=== PATIENT | female | born 1995 | race Caucasian/White ===

== ENCOUNTER 2018-04-21 04:37 | Emergency (ER) | payer MEDICAID ==
[~2018-04-21] VITALS: Ht 165.1 cm; Wt 59.0 kg
[2018-04-21] MEDS ORDERED: SODIUM CHLORIDE 0.9% 1,000 ML IV ONE ×2 (06:38→09:31)
[2018-04-21 07:04] LABS: CLARITY URINE CLEAR (CLEAR); COLOR URINE YELLOW (YELLOW); KETONES URINE NEGATIVE (NEGATIVE); NITRITE URINE NEGATIVE (NEGATIVE); OCCULT BLOOD URINE NEGATIVE (NEGATIVE); PH URINE 6.5 (4.5-8.0); PROTEIN URINE NEGATIVE (NEGATIVE); SPECIFIC GRAVITY URINE 1.016 (1.005-1.030); UROBILINOGEN URINE 0.2 E.U./dL (0.2-1.0)
[2018-04-21 07:05] LABS: LEUKOCYTE ESTERASE URINE NEGATIVE (NEGATIVE)
[2018-04-21 07:19] LABS: *BARBITURATES SCREEN URINE NEGATIVE (NEGATIVE); *BENZODIAZEPINES SCREEN URINE NEGATIVE (NEGATIVE); *COCAINE SCREEN URINE NEGATIVE (NEGATIVE)
[2018-04-21 07:20] LABS: METHADONE URINE SCREEN NEGATIVE (NEGATIVE); OPIATES URINE SCREEN NEGATIVE (NEGATIVE); PHENCYCLIDINE URINE SCREEN NEGATIVE (NEGATIVE)
[2018-04-21 07:51] LABS: *AMPHETAMINES SCREEN URINE PRESUMTIVE POSITIVE (NEGATIVE); CANNABINOID URINE SCREEN PRESUMTIVE POSITIVE (NEGATIVE)
[2018-04-21 08:26] LABS: CHLORIDE 107 mEq/L (98-107)
[2018-04-21 08:29] LABS: BASOPHILS % 0.2 % (0.0-2.0); EOSINOPHILS % 0.1 % (0.0-5.0); ETHANOL BLOOD < 10 mg/dL; HEMATOCRIT. 42.5 % (36.0-48.0); HEMOGLOBIN. 14.6 g/dL (12.0-16.0); LYMPHOCYTES % 9.2 % (20.0-50.0); MEAN CORPUSCULAR HEMOGLOBIN 29.8 pg (28.0-32.0); MEAN CORPUSCULAR VOLUME 86.8 fL (81.0-99.0); MEAN PLATELET VOLUME 7.9 fl (7.4-10.4); MONOCYTES % 4.2 % (2.0-8.0); NEUTROPHILS % 86.3 % (40.0-76.0); PLATELET 401 x1000/uL (130-400); RED CELL DISTRIBUTION WIDTH 13.3 % (11.6-14.6)
[2018-04-21 08:32] LABS: HCG SCREEN NEGATIVE
[2018-04-21] MEDS ORDERED: DEXT 5%/0.45% NACL KCL 20MEQ/L 1,000 ML IV ONE (10:15)
[2018-04-21] MEDS ORDERED: DEXT IV NR (11:00)
[2018-04-21] MEDS ORDERED: NACL KCL IV NR (11:00)
[2018-04-21] MEDS ORDERED: SODIUM BICARBONATE IV NR (11:00)
[2018-04-21 12:49] VITALS: BP 136/78
== END 2018-04-21 12:57 | disposition home or self-care (01) ==
LOC: ER 04:37 → EDBD 04:37 → ER 12:57 → CANBEDREQ 19:15
DX: T43.621A Poisoning by amphetamines, accidental (unintentional), initial encounter (principal); R41.82 Altered mental status, unspecified; F12.10 Cannabis abuse, uncomplicated; Y92.018 Other place in single-family (private) house as the place of occurrence of the external cause
CPT/HCPCS: 36415; 70450; 70486; 71045; 80053; 80305; 80307; 80320; 80329; 81003; 81025; 84703; 85025; 85610; 96361; 96374; 99284; J3490; J7030; G0480

== ENCOUNTER 2019-08-18 13:11 | Emergency (ER) | payer MEDICAID ==
[~2019-08-18] VITALS: Ht 160 cm; Wt 50.0 kg
[2019-08-18 13:14] VITALS: BP 118/72
[2019-08-18] MEDS ORDERED: IBUPROFEN 600MG TABLET PO ONE (13:45)
[2019-08-18] MEDS ORDERED: LIDOCAINE HCL/PF 1% 10 MG/ML 5ML VIAL IJ ONE (13:45)
[2019-08-18] MEDS ORDERED: BACITRACIN ZINC OINT UDPKT TOP ONE (13:45)
== END 2019-08-18 16:18 | disposition home or self-care (01) ==
LOC: ER 13:11
DX: S81.812A Laceration without foreign body, left lower leg, initial encounter (principal); F12.10 Cannabis abuse, uncomplicated; W26.8XXA Contact with other sharp object(s), not elsewhere classified, initial encounter; Y93.89 Activity, other specified; Y92.018 Other place in single-family (private) house as the place of occurrence of the external cause
CPT/HCPCS: 12002; 73590; 81025; 99283; J3490; Z7610

== ENCOUNTER 2022-08-07 12:41 | Emergency (ER) | payer MEDICAID ==
[~2022-08-07] VITALS: Ht 160 cm; Wt 83.0 kg
[2022-08-07 13:57] VITALS: BP 117/72; PULSE 80; RESP 20; TEMP 98.6; O2SAT 98
== END 2022-08-07 17:29 | disposition home or self-care (01) ==
LOC: ER 12:41
DX: N64.3 Galactorrhea not associated with childbirth (principal); F12.10 Cannabis abuse, uncomplicated; Z98.890 Other specified postprocedural states
CPT/HCPCS: 81025; 99282